=== PATIENT | female | born 1965 | race American Indian/Alaskan Native ===

== ENCOUNTER 2018-03-06 09:17 | Emergency (ER) | payer OTHER ==
[2018-03-06 09:17] VITALS: BMI 35.3
--- NOTE | 2018-03-06 10:03 | ED PDOC ---
Arrival/HPI - General Chief Complaint: Lower Extremity Problem/Injury Time Seen by Provider: 03/06/18 09:47 Historian: Patient - History of Present Illness Narrative History of Present Illness (Text): 03/06/18 10:00 52yo female with no PMhx who present with complaint of left lower leg pain. States pain radiates from the left knee to the foot. states pain started in July after getting a Liposuction. States she was seen twice at [facility] ED and US was negative for DVT. States she came to ED because she is still having same pain. she denies SOB, chest pain, diaphoresis, dizziness, fever, redness, swelling, any other complaint. Past Medical History - Provider Review Nursing Documentation Reviewed: Yes - Tetanus Immunization Tetanus Immunization: Up to Date - Reproductive Menopause: Yes (lmp 04/2017) - Past Medical History Past Medical History: No Previous - Gastrointestinal Other/Comment: Teritoma - Psychiatric Hx Substance Use: No - Surgical History Hx Section: Yes Other/Comment: FIBROIDS, liposuction 07/2017 - Suicidal Assessment Feels Threatened In Home Enviroment: No Family/Social History - Physician Review Nursing Documentation Reviewed: Yes Family/Social History: Unknown Family HX Smoking Status: Never Smoked Hx Alcohol Use: No Hx Substance Use: No Hx Substance Use Treatment: No Allergies/Home Meds Allergies/Adverse Reactions: Allergies corn Allergy (Verified 03/06/18 09:27) ANAPHYLAXIS oats Allergy (Verified 03/06/18 09:27) ANAPHYLAXIS peanut Allergy (Verified 03/06/18 09:27) ANAPHYLAXIS Review of Systems - Physician Review All systems were reviewed & negative as marked: Yes - Review of Systems Constitutional: Normal Eyes: Normal ENT: Normal Respiratory: Normal Cardiovascular: Normal Gastrointestinal: Normal Genitourinary Female: Normal Musculoskeletal: Arthralgias (Left lower leg) Skin: Normal Neurological: Normal Endocrine: Normal Hemo/Lymphatic: Normal Psychiatric: Normal Physical Exam Vital Signs Reviewed: Yes Vital Signs Temp Pulse Resp BP Pulse Ox 03/06/18 13:11 97.1 F L 82 16 134/86 99 03/06/18 11:10 80 16 127/86 99 03/06/18 09:28 98.3 F 87 18 121/85 98 Temperature: Afebrile Blood Pressure: Normal Pulse: Regular Respiratory Rate: Normal Appearance: Positive for: Well-Appearing, Non-Toxic, Comfortable Pain Distress: None Mental Status: Positive for: Alert and Oriented X 3 - Systems Exam Head: Present: Atraumatic, Normocephalic Pupils: Present: PERRL Extroacular Muscles: Present: EOMI Conjunctiva: Present: Normal Mouth: Present: Moist Mucous Membranes Neck: Present: Normal Range of Motion Respiratory/Chest: Present: Clear to Auscultation, Good Air Exchange. No: Respiratory Distress, Accessory Muscle Use Cardiovascular: Present: Regular Rate and Rhythm, Normal S1, S2. No: Murmurs Abdomen: No: Tenderness, Distention, Peritoneal Signs Back: Present: Normal Inspection Upper Extremity: Present: Normal Inspection. No: Cyanosis, Edema Lower Extremity: Present: CALF TENDERNESS (Left leg), NORMAL PULSES, Normal ROM , Tenderness (Left knee), Neurovascularly Intact. No: Edema, Sergio's Sign, Swelling, Erythema, Temperature Abnormalties Neurological: Present: GCS=15, CN II-XII Intact, Speech Normal Skin: Present: Warm, Dry, Normal Color. No: Rashes Psychiatric: Present: Alert, Oriented x 3, Normal Insight, Normal Concentration Medical Decision Making ED Course and Treatment: 03/06/18 18:09 Left knee xray - Small supra patella effusion.No acute fracture Left Doppler US - Negative for DVT. Pt was ambulatory in ED. She states her pain improved with medication in ED. Jose wrap applied. Advised to elevate knee. Result was DW the pt and she was referred to her PMD/ortho - RAD Interpretation Radiology Orders: 03/06/18 09:48 DUPLEX LOWER EXTRM VEIN LEFT [US] Stat 03/06/18 09:49 KNEE WITH PATELLA LEFT 3 VIEW [RAD] Stat - Medication Orders Current Medication Orders: Discontinued Medications Ketorolac Tromethamine (Toradol) 60 mg IM STAT STA Stop: 03/06/18 09:51 Last Admin: 03/06/18 10:13 Dose: 60 mg MAR Pain Assessment Document 03/06/18 10:13 GMD (Rec: 03/06/18 10:13 GMD [id number]) Pain Reassessment Is this a pain reassessment? No Presence of Pain Presence of Pain Yes Location Left, Right or Bilateral Left Upper or Lower Lower Pain Location Body Site Leg IM Administration Charges Document 03/06/18 10:13 GMD (Rec: 03/06/18 10:13 [id number]) Charges for Administration # of IM Administrations 1 Disposition/Present on Arrival - Present on Arrival Any Indicators Present on Arrival: No History of DVT/PE: No History of Uncontrolled Diabetes: No Urinary Catheter: No History of Decub. Ulcer: No History Surgical Site Infection Following: None - Disposition Have Diagnosis and Disposition been Completed?: Yes Diagnosis: Knee pain, Leg pain Disposition: HOME/ ROUTINE Disposition Time: 12:25 Patient Plan: Discharge Condition: STABLE Discharge Instructions (ExitCare): Knee Pain Additional Instructions: Follow up with your doctor/Orthopedist Return to ED for any new or worsening symptoms Prescriptions: Naproxen [Naprosyn] 500 mg PO BID #20 tablet Referrals: Kyaw Soto DO [Staff Provider] - Follow up with primary Forms: [employer] (Indonesian)
--- NOTE | 2018-03-06 12:18 | RAD ---
PROCEDURE: AP lateral, cross-table lateral and sunrise views of the left knee performed HISTORY: Pain. COMPARISON: None. FINDINGS: BONES: No evidence of acute displaced fracture nor dislocation. The osseous structures appear intact. No cortical destructive changes JOINTS: Joint spaces relatively preserved with no significant osteoarthritis. JOINT EFFUSION: There is a small suprapatellar joint effusion. OTHER FINDINGS: None. IMPRESSION: No evidence of acute displaced fracture nor dislocation. Small suprapatellar joint effusion.
[2018-03-06 13:11] VITALS: RESP 16; O2SAT 99
[2018-03-06 13:13] VITALS: BP 134/86; PULSE 82; TEMP 97.1
--- NOTE | 2018-03-06 16:13 | US ---
PROCEDURE: Left lower extremity venous US HISTORY: Leg pain and swelling. Evaluate for DVT. PHYSICIAN(S): Timothy Ortiz MD. TECHNIQUE: Duplex sonography and color-flow Doppler with graded compression were used to evaluate the deep venous system of the left lower extremity. FINDINGS: The visualized deep venous system of the left lower extremity is sonographically normal and compressible. Normal wave forms and augmentation are seen. There is no sonographic evidence for deep venous thrombosis in the visualized segments of the left lower extremity. IMPRESSION: 1. No sonographic evidence for deep venous thrombosis in the visualized segments of the left lower extremity.
== END 2018-03-06 12:47 | disposition home or self-care (01) ==
LOC: ED 09:17
DX: M25.562 Pain in left knee (principal); M79.605 Pain in left leg
CPT/HCPCS: 73562; 93971; 96372; 99284; J1885

== ENCOUNTER 2018-11-13 14:17 | Inpatient (IN) | payer OTHER ==
[2018-11-13 14:17] VITALS: BMI 35.3
[2018-11-13] MEDS ORDERED: Sodium Chloride 0.9% 500 ML IV STA (15:38)
[2018-11-13 16:25] LABS: BASO # 0.08 K/mm3 (0.0-2.0); BASO % 1.2 % (0.0-3.0); EOS # 0.2 (0.0-0.7); EOS % 2.5 % (1.5-5.0); GRAN # 3.36 (1.4-6.5); GRAN % 48.5 % (50.0-68.0); HEMOGLOBIN 13.3 g/dL (12.0-16.0); LYMPH # 2.9 (1.2-3.4); LYMPH % 42.3 % (22.0-35.0); MEAN CELL VOLUME 90.1 fl (80.0-105.0); MEAN CORPUSCULAR HEMOGLOBIN 28.7 pg (25.0-35.0); MEAN CORPUSCULAR HGB CONC 31.9 g/dl (31.0-37.0); MEAN PLATELET VOLUME 10.3 fl (7.0-11.0); MONO # 0.4 (0.1-0.6); MONO % 5.5 % (1.0-6.0); RBC 4.63 10^6/uL (3.5-6.1); RED CELL DISTRIBUTION WIDTH 14.8 % (11.5-14.5); WHITE BLOOD COUNT 6.9 10^3/uL (4.5-11.0)
[2018-11-13 16:27] LABS: INR 1.05; PARTIAL THROMBOPLASTIN TIME 33.5 Seconds (25.1-36.5)
[2018-11-13 16:37] LABS: ALB/GLOB RATIO 1.2 (1.1-1.8); ALBUMIN 4.3 g/dL (3.0-4.8); ALT/SGPT 33 U/L (7-56); AST/SGOT 36 U/L (14-36); BLOOD UREA NITROGEN 16 mg/dL (7-21); CALCIUM 9.5 mg/dL (8.4-10.5); GFR NON-AFRICAN AMERICAN 52
[2018-11-13 16:47] LABS: TROPONIN I < 0.01 ng/mL
[2018-11-13] MEDS ORDERED: Iohexol 350 MG/100 ML VIAL ONE (17:13)
[2018-11-13 17:16] LABS: URINE BILIRUBIN NEGATIVE (NEGATIVE); URINE BLOOD NEGATIVE (NEGATIVE); URINE GLUCOSE (UA) NEGATIVE (NEGATIVE); URINE LEUKOCYTE ESTERASE NEGATIVE Leu/uL (NEGATIVE); URINE PROTEIN NEGATIVE mg/dL (<30 mg/dL)
[2018-11-13 17:18] LABS: URINE APPEARANCE CLEAR (CLEAR); URINE COLOR YELLOW (YELLOW)
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
[2018-11-13] MEDS: Morphine 2 mg/ml ISec IVP STA ×2 (23:27→23:52)
--- NOTE | 2018-11-14 00:32 | CP.PCM.PCO ---
Physician Communication Note - Physician Communication Note Physician Communication Note: Nursing Paged 11/14/18 @ 0000 Addendum Addendum: 11/14/18 00:29 Nursing paged prior to midnight stating patient had c/o headache despite already receiving appox 1gm of acetaminophen Morphine 2mg IVP admin via telephone order Nursing paged after midnight to inform that patient was complainign of abd pain shortly after admin morphine. Patient was evaluated at bedside reported that pain was epigastric / in the RUQ ; patient also complaining of associated NV patient was tender to palpation in the RUQ and Epigastric region; murphys sign was negative we will evaluate pt w/ abdominal US and Lipase level to rule out any biliary obstruction/ hepatic disease; as well as traumatic vs idiopatic pancreatitis NPatel DO PGY1 - Internal Medicine Guest History Clerk
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
[2018-11-14 07:46] LABS: BASO # 0.03 K/mm3 (0.0-2.0); BASO % 0.4 % (0.0-3.0); EOS # 0.1 (0.0-0.7); GRAN # 4.9 (1.4-6.5); GRAN % 61.3 % (50.0-68.0); HEMOGLOBIN 12.8 g/dL (12.0-16.0); LYMPH # 2.6 (1.2-3.4); MEAN CELL VOLUME 88.6 fl (80.0-105.0); MEAN CORPUSCULAR HEMOGLOBIN 28.6 pg (25.0-35.0); MEAN CORPUSCULAR HGB CONC 32.2 g/dl (31.0-37.0); MONO # 0.3 (0.1-0.6); MONO % 4.3 % (1.0-6.0); RBC 4.48 10^6/uL (3.5-6.1); RED CELL DISTRIBUTION WIDTH 14.7 % (11.5-14.5)
[2018-11-14 08:06] LABS: ALB/GLOB RATIO 1.2 (1.1-1.8); ALBUMIN 4.2 g/dL (3.0-4.8); ALT/SGPT 50 U/L (7-56); AST/SGOT 53 U/L (14-36); BLOOD UREA NITROGEN 10 mg/dL (7-21); CALCIUM 9.5 mg/dL (8.4-10.5); GFR NON-AFRICAN AMERICAN > 60
--- NOTE | 2018-11-14 09:55 | CARD ---
APPROVED REPORT Date of service: 11/13/2018 EKG Measurement Heart [id number] <Conclusion> Normal sinus rhythm Minimal voltage criteria for LVH, may be normal variant Cannot rule out Anterior infarct, age undetermined Abnormal ECG
--- NOTE | 2018-11-14 09:57 | US ---
HISTORY: RUQ / Epigastric Pain post morphine COMPARISON: CT chest, abdomen, and pelvis with IV contrast performed 11/13/18 TECHNIQUE: Sonographic evaluation of the abdomen. FINDINGS: LIVER: Measures 17.3 cm in sagittal dimension. Echogenic liver may be seen in setting of hepatic parenchymal disease or fatty infiltration. No focal hepatic mass identified. The main portal vein appears patent with normal directional flow. No intrahepatic bile duct dilatation. GALLBLADDER: Cholecystectomy. COMMON BILE DUCT: Measures 6 mm. PANCREAS: Not well visualized. RIGHT KIDNEY: Measures 9.9 x 4.6 x 5.4cm. No obstructing calculus or hydronephrosis identified. LEFT KIDNEY: Measures 9.1 x 5.5 x 7.0cm. No obstructing calculus or hydronephrosis identified. SPLEEN: Measures approximately 7.7 cm. AORTA: Limited views appear unremarkable. IVC: Limited views appear unremarkable. OTHER FINDINGS: None. IMPRESSION: Left midpole renal cyst measuring approximately 3.6 cm. Echogenic liver may be seen in setting of hepatic parenchymal disease or fatty infiltration. Cholecystectomy. Preliminary impression was provided by [facility].
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
[2018-11-15 06:19] VITALS: O2SAT 99
--- NOTE | 2018-11-15 07:40 | CP.PCM.PN ---
Subjective - Date & Time of Evaluation Date of Evaluation: 11/15/18 Time of Evaluation: 07:40 Objective - Vital Signs/Intake and Output Vital Signs (last 24 hours): Temp Pulse Resp BP Pulse Ox 97.6 F 66 22 133/86 99 11/15/18 06:00 11/15/18 06:00 11/15/18 06:00 11/15/18 06:00 11/15/18 06:00 Intake and Output: 11/15/18 11/15/18 06:59 18:59 Intake Total 960 Balance 960 - Medications Medications: Current Medications Acetaminophen (Tylenol 325mg Tab) 650 mg PO Q6H PRN PRN Reason: Fever >100.4 F Last Admin: 11/14/18 19:51 Dose: 650 mg Ondansetron HCl (Zofran Inj) 4 mg IVP Q6H PRN PRN Reason: Nausea/Vomiting Last Admin: 11/14/18 01:37 Dose: 4 mg - Labs Labs: 11/14/18 07:30 11/14/18 07:30 PT 12.0 SECONDS (9.4-12.5) 11/13/18 16:04 INR 1.05 11/13/18 16:04 APTT 33.5 Seconds (25.1-36.5) 11/13/18 16:04
[2018-11-15 08:04] LABS: BASO # 0.07 K/mm3 (0.0-2.0); BASO % 1.4 % (0.0-3.0); EOS # 0.2 (0.0-0.7); EOS % 4.5 % (1.5-5.0); GRAN # 1.87 (1.4-6.5); GRAN % 36.4 % (50.0-68.0); LYMPH # 2.7 (1.2-3.4); LYMPH % 51.9 % (22.0-35.0); MEAN CELL VOLUME 89.2 fl (80.0-105.0); MEAN CORPUSCULAR HEMOGLOBIN 28.1 pg (25.0-35.0); MEAN CORPUSCULAR HGB CONC 31.6 g/dl (31.0-37.0); MEAN PLATELET VOLUME 10.5 fl (7.0-11.0); MONO # 0.3 (0.1-0.6); MONO % 5.8 % (1.0-6.0); RBC 4.62 10^6/uL (3.5-6.1); RED CELL DISTRIBUTION WIDTH 14.8 % (11.5-14.5); WHITE BLOOD COUNT 5.1 10^3/uL (4.5-11.0)
[2018-11-15 08:33] LABS: ALB/GLOB RATIO 1.1 (1.1-1.8); ALT/SGPT 36 U/L (7-56); AST/SGOT 33 U/L (14-36); BLOOD UREA NITROGEN 15 mg/dL (7-21); CALCIUM 9.8 mg/dL (8.4-10.5); GFR NON-AFRICAN AMERICAN > 60
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
[2018-11-15 13:42] VITALS: BP 124/87; RESP 17; TEMP 97.7
[2018-11-15 14:06] VITALS: PULSE 80
== END 2018-11-15 19:15 | disposition home or self-care (01) | DRG 90 ==
LOC: ED 14:17 → ERH 19:33 → 2RNO 11-14 01:51
PROVIDERS: ADMIT Hospitalist; ATTEND Hospitalist
DX: S06.0X0A Concussion without loss of consciousness, initial encounter (principal); S20.219A Contusion of unspecified front wall of thorax, initial encounter; V49.49XA Driver injured in collision with other motor vehicles in traffic accident, initial encounter; N28.1 Cyst of kidney, acquired; K44.9 Diaphragmatic hernia without obstruction or gangrene; M40.209 Unspecified kyphosis, site unspecified; Y92.410 Unspecified street and highway as the place of occurrence of the external cause